=== PATIENT | male | born 2000 | race Caucasian/White ===

== ENCOUNTER 2018-10-14 02:49 | Emergency (ER) | payer SELFPAY ==
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
[2018-10-14 05:03] VITALS: BP 89/58
== END 2018-10-14 06:15 | disposition home or self-care (01) ==
DX: F10.920 Alcohol use, unspecified with intoxication, uncomplicated (principal); F19.10 Other psychoactive substance abuse, uncomplicated